=== PATIENT | male | born 1970 | race Caucasian/White ===

== ENCOUNTER 2023-02-16 09:06 | Outpatient (CLI) | payer OTHER ==
--- NOTE | 2023-02-16 12:17 | CT Report ---
PROCEDURE: Low Dose Lung Cancer Screen INDICATIONS: CURRENT SMOKER TECHNIQUE: Noncontrast low-dose axial images were acquired from the pulmonary apices to the posterior costophren ic angles. Multiplanar MIP reformats were then reconstructed. For radiation dose reduction, the follo wing was used: automated exposure control, adjustment of mA and/or kV according to patient size. COMPARISON: None. FINDINGS: Image quality: Excellent. Prior cancer history: Unsure Lungs and pleura: No pleural effusions. No pneumothorax. Mild bilateral peripheral bronchial wall th ickening. No endobronchial nodule. No airspace consolidation or suspicious groundglass opacity. A tri angular 5 mm subpleural right lower lobe lung nodule, 4/23, and triangular/nodular subpleural 6 mm le ft lower lobe nodule (4/272) may both be intrapulmonary lymph nodes. Mediastinum: Heart size is normal. No pericardial effusions. No mediastinal adenopathy by size criter ia. No large vessel abnormality. Chest wall and lower neck: Thyroid is unremarkable. No axillary or supraclavicular adenopathy by size . Bones: No aggressive osseous abnormality. Upper Abdomen: Unremarkable. IMPRESSION: Lung RAD: 3 - Probably Benign. Recommendation: Continue screening in 6 Months with LDCT Non-Lung Significant Findings: None. Reviewed by: Virgen Armando MD on 02/16/2023 12:16 PM PDT Approved by: Virgen Armando MD on 02/16/2023 12:16 PM PDT Station ID: [id number]
== END 2023-02-16 09:07 | disposition home or self-care (01) ==
LOC: DI 09:06
PROVIDERS: ATTEND Student in an Organized Health Care Education/Training Program
DX: Z12.2 Encounter for screening for malignant neoplasm of respiratory organs (principal); F17.210 Nicotine dependence, cigarettes, uncomplicated

== ENCOUNTER 2024-02-29 11:30 | Outpatient (CLI) | payer OTHER ==
--- NOTE | 2024-02-29 14:24 | CT Report ---
PROCEDURE: Lung Cancer Screen INDICATIONS: TOBACCO USE TECHNIQUE: A CT scan of the chest was performed. Intravenous contrast media was not administered. Images were re corded and evaluated at appropriate window settings. Reformats: axial MIP of the chest, coronal and s agittal. For radiation dose reduction, the following was used: automated exposure control, adjustment of mA and/or kV according to patient size. COMPARISON: 02/16/2023. FINDINGS: Image quality: Excellent. Lungs:Scattered sub-5 mm pulmonary nodules, unchanged from prior exam. No pleural effusion, pneumotho rax, pulmonary edema or focal consolidation. Soft tissue/mediastinum/heart: Heart is normal in size. No pericardial effusion.No significant welch ry artery calcification. Mild atherosclerotic calcification of the thoracic aorta. No thoracic aorti c aneurysm. No mediastinal, hilar, or axillary lymphadenopathy. Visualized portion of the upper abdomen:Unremarkable Bones: Chronic right posterior 12th rib fracture, new from prior exam. Multiple subacute to chronic a ppearing anterior left-sided rib fracture, new from prior exam. Mild superior endplate fracture of T5 , new from prior exam, age-indeterminate. IMPRESSION: 1.Scattered sub-5 mm pulmonary nodules, unchanged. 2.Multiple subacute to chronic rib fractures, left greater than right, new from prior exam. 3.Mild superior endplate fracture of T5, new from prior exam, age-indeterminate. Lung RAD: 2 - Benign. Recommendation: Continue annual screening in 12 Months with LDCT Non-Lung Significant Findings: None. Reviewed by: Sadia Fischer MD on 02/29/2024 2:23 PM PDT Approved by: Sadia Fischer MD on 02/29/2024 2:23 PM PDT Station ID: [id number]
== END 2024-02-29 11:31 | disposition home or self-care (01) ==
LOC: DI 11:30
PROVIDERS: ATTEND Internal Medicine
DX: Z12.2 Encounter for screening for malignant neoplasm of respiratory organs (principal); R91.8 Other nonspecific abnormal finding of lung field; S22.43XA Multiple fractures of ribs, bilateral, initial encounter for closed fracture; S22.059A Unspecified fracture of T5-T6 vertebra, initial encounter for closed fracture; Z72.0 Tobacco use

== ENCOUNTER 2024-04-26 08:10 | Emergency (ER) | payer OTHER ==
--- NOTE | 2024-04-26 08:56 | ED Physician Documentation ---
PD HPI BACK PAIN - Stated complaint Stated Complaint: LOWER BACK/HIP PX - Chief complaint Chief Complaint: Back Pain - History obtained from History obtained from: Patient - History of Present Illness Timing - onset: How many days ago (5) Timing - duration: Days (5) Timing - details: Gradual onset, Still present Location: Lower, Right, Left Quality: Pain, Spasm, Sharp, Similar to prior episodes Associated symptoms: No: Fever, Weakness, Numbness, Incontinent of urine, Unable to urinate, Hematuria, Incontinent of stool Improves with: Rest, Position Worsened by: Movement, Lifting Contributing factors: Lifting, Other (lifted 50lb crate at work) Similar symptoms before: Diagnosis (lumbar disc disease s/p fusion) Recently seen: Not recently seen - Additional information Additional information: Emile Mix has a history of chronic back pain has done some lifting at work a 50 pound crate. He believes this is likely the cause of the increase in his pain and he has had significant stiffness associated with this. He is having sciatic complaints down the back of both legs. Review of Systems Constitutional: denies: Fever Ears: denies: Ear pain Nose: denies: Congestion Throat: denies: Sore throat Respiratory: denies: Cough GI: denies: Vomiting, Diarrhea : denies: Dysuria, Frequency, Incontinent PD PAST MEDICAL HISTORY - Past Medical History Past Medical History: Yes Cardiovascular: None Respiratory: COPD, Sleep apnea Neuro: None Endocrine/Autoimmune: None GI: None : Benign prostate hypertrophy HEENT: None Psych: Anxiety, Bipolar disorder Musculoskeletal: Osteoarthritis, Chronic back pain Derm: None - Past Surgical History Past Surgical History: Yes Ortho: Spine surgery - Present Medications Home Medications: Ambulatory Orders Medication Instructions Recorded Confirmed Cyclobenzaprine [Flexeril] 10 mg PO TID PRN #20 tablet 04/26/24 HYDROcod/ACETAM 5/325 [[place] 5/325] 1 - 2 tablet PO Q6H PRN #14 tablet 04/26/24 - Allergies Allergies/Adverse Reactions: Allergies Allergy/AdvReac Type Severity Reaction Status Date / Time bupropion [From Wellbutrin] Allergy Edema Verified 04/26/24 08:19 - Social History Does the pt smoke?: Yes Smoking Status: Current every day smoker Does the pt drink ETOH?: Yes Does the pt have substance abuse?: Yes Substance Use and Type: Marijuana, CBD oil / Products - Immunizations Immunizations are current?: Yes - POLST Patient has POLST: No PD ED PE NORMAL - Vitals Vital signs reviewed: Yes - General General: Alert and oriented X 3, Well developed/nourished, Other (The patient sits stiffly and moves about stiffly ) - HEENT HEENT: Atraumatic, PERRL, EOMI - Respiratory Respiratory: No respiratory distress - Back Back: No CVA TTP, No spinal TTP, Other (mild tenderness to the lower lumbar paraspinous muscles ) - Derm Derm: Normal color, Warm and dry, No rash - Extremities Extremities: No deformity, No edema - Neuro Neuro: Alert and oriented X 3, 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 He has a prior history of substance abuse including narcotic use and he is avoided using narcotic. He is not taking any medications specifically at all now for his back pain. He presents today with severe pain and stiffness to his lower back. Here in the emerged primary is treated with dexamethasone and Toradol we will place him on a short course of pain medication and muscle relaxant. He was receptive to a brief narcotic course. Departure - Departure Disposition: 01 Home, Self Care Clinical Impression: Back pain Qualifiers: Back pain location: low back pain Chronicity: acute Back pain laterality: bilateral Sciatica presence: with sciatica Sciatica laterality: bilateral sciatica Qualified Code(s): M54.42 - Lumbago with sciatica, left side Condition: Stable Instructions: ED Low Back Pain Injury, ED Sciatica Follow-Up: DALILA REGALADO MD [Primary Care Provider] - Prescriptions: Cyclobenzaprine [Flexeril] 10 mg PO TID PRN #20 tablet PRN Reason: Spasms HYDROcod/ACETAM 5/325 [[place] 5/325] 1 - 2 tablet PO Q6H PRN #14 tablet PRN Reason: Pain Comments: Emile, today it looks like you have strained your back at work and today we have provided some dexamethasone and Toradol for acute pain relief and the dexamethasone should help for the next 2 days and reducing the amount of inflammation in your back. My recommendation is to hydrate adequately, take pain medication and muscle relaxant as needed and follow-up with your primary care doctor for physical therapy. I have E scribed some pain medication and muscle relaxants to the [facility] in [place]. Regular physical therapy for 2 or more years may be required for further recovery. Discharge Date/Time: 04/26/24 09:24
[2024-04-26] MEDS: CHERRY SYRUP 10 ML UDC PO ONE (09:06)
[2024-04-26] MEDS: DEXAMETHASONE 10 MG/ML VIAL PO STA (09:06)
[2024-04-26] MEDS: KETOROLAC 30 MG/ML VIAL IM STA (09:07)
[2024-04-26 09:29] VITALS: BP 132/99; O2SAT 97
== END 2024-04-26 09:24 | disposition home or self-care (01) ==
LOC: ED 08:10
DX: M54.42 Lumbago with sciatica, left side (principal); M54.41 Lumbago with sciatica, right side; J44.9 Chronic obstructive pulmonary disease, unspecified; F17.200 Nicotine dependence, unspecified, uncomplicated
CPT/HCPCS: 96374; 99283; A9270